=== PATIENT | male | born 1935 | race Caucasian/White ===

== ENCOUNTER 2017-12-01 11:06 | Emergency (ER) | payer MEDICARE, BC, SELFPAY ==
[2017-12-01 11:06] VITALS: BP 160/70; PULSE 74; RESP 14; TEMP 36.7; O2SAT 94; BMI 24.7
--- NOTE | 2017-12-01 11:32 | DI.CT.S_ITS ---
PROCEDURE: CT HEAD/BRAIN WO CON INDICATIONS: headache, recent bleed at [facility] on TECHNIQUE: Noncontrast 4.5 mm thick angled axial sections acquired from the foramen magnum to the vertex, with coronal and sagittal reformats. For radiation dose reduction, the following was used: automated exposure control, adjustment of mA and/or kV according to patient size. COMPARISON: None. FINDINGS: Image quality: Excellent. CSF spaces: Basal cisterns are patent. No extra-axial fluid collections. The ventricles are symmetric in size and shape. Brain: There is an oval hypodensity involving anteromedial aspect of left temporal lobe in the region of left hippocampus and measures 2 x 0.9 x 1.7 cm in size. Mild surrounding vasogenic edema is seen. Findings consistent with an acute to subacute hematoma in this area. No other area of intracranial hemorrhage. No evidence of intracranial mass. There is cerebral volume loss for age, with resultant ventricular and sulcal prominence. There are periventricular and deep white matter chronic small vessel ischemic changes. There is intracranial internal carotid artery atherosclerosis. Skull and face: Calvarium and visualized facial bones appear intact, without suspicious lesions. Sinuses: Visualized sinuses and mastoids are clear. IMPRESSION: 1. Acute to subacute appearing hematoma involving the left hippocampal region with mild surrounding vasogenic edema. No midline shift. No other area of intracranial bleed. 2. Age-appropriate atrophy and [id number]-[id number] periventricular white matter microangiopathic changes. Dictated by: Jabier Mena M.D. on 12/01/2017 at 11:57 Approved by: Jabier Mena M.D. on 12/01/2017 at 12:03
--- NOTE | 2017-12-01 11:34 | ED.NEUROSD ---
HPI - Neuro Symptoms/Deficit General Chief Complaint: Neuro Symptoms/Deficit Stated Complaint: NEUROLIGAL EVENT Time Seen by Provider: 12/01/17 11:25 Source: patient Mode of arrival: ambulatory Limitations: no limitations History of Present Illness HPI Narrative: Patient is an 82-year-old male who presents with headache. He has a history of multiple on ?micro bleeds? on and off the last 9 years. He was at [facility] last week for routine MRI of these bleeds. His they found that he did have an acute bleed he was placed in the hospital and discharged 2 days later. At that time he did not have severe headache. Yesterday he started having a worsening headache and today it is much worse. His states that he is slow but she does not notice any focal deficits patient does not complain of focal deficits. He now has no chest pain or heart palpitations. He was previously on aspirin and till at which point he was taken off when hemorrhagic stroke was found. He denies any new visual changes no facial drooping no weakness no numbness or tingling states that today he had increasing headache and was slower than normal to respond but is appropriate. Onset (ago): day(s) On Anticoagulants: No (ASA discontinued last week.) Related Data Home Medications Medication Instructions Recorded Confirmed atorvastatin 20 mg PO DAILY 12/01/17 12/01/17 fluticasone [Flovent HFA] 1 puff INHALATION DIRECTED 12/01/17 12/01/17 lisinopril 5 mg PO DAILY 12/01/17 12/01/17 topiramate 12.5 mg PO DAILY 12/01/17 12/01/17 Allergies Allergy/AdvReac Type Severity Reaction Status Date / Time No Known Drug Allergies Allergy Verified 12/01/17 11:23 Review of Systems Review of Systems All systems reviewed & are unremarkable except as noted in HPI and below Constitutional Denies chills, Denies fever(s), Reports headache(s), Denies lethargy and Denies weakness Eyes Denies change in vision, Denies eye discharge, Denies irritation and Denies loss of vision ENT Ears, Nose, Mouth, and Throat: Reports headache(s) Cardiovascular Denies chest pain, Denies irregular heart rhythm, Denies lightheadedness, Denies palpitations, Denies dyspnea, Denies dyspnea on exertion and Denies orthopnea Respiratory Denies cough, Denies dyspnea, Denies dyspnea on exertion and Denies wheezing Gastrointestinal Gastrointestinal: Denies abdominal pain, Denies change in bowel habits, Denies diarrhea, Denies nausea and Denies vomiting Musculoskeletal Denies back pain, Denies muscle weakness, Denies numbness and Denies tingling Integumentary/Breasts Denies pruritus, Denies erythema, Denies rash and Denies wounds Neurologic Reports as per HPI, Reports headache(s), Denies loss of vision, Denies numbness, Denies tingling and Denies weakness Endocrine Denies palpitations Allergic/Immunologic Denies wheezing FORMERLY [facility], [facility] Medical History Hemorrhagic stroke (Acute) Social History Smoking Status: Never smoker Exam Initial Vital Signs Initial Vital Signs: Vital Signs Temperature 98.0 F 12/01/17 11:06 Pulse Rate 74 12/01/17 11:06 Respiratory Rate 14 12/01/17 11:06 Blood Pressure 160/70 H 12/01/17 11:06 Pulse Oximetry 94 12/01/17 11:06 GENERAL: Alert cooperative elderly male in no acute distress HEENT: Head atraumatic,EOMI, pupils reactive, face symmetric CARDIOVASCULAR: Regular rate and rhythm without murmurs, rubs or gallops. RESPIRATORY: Breath sounds equal bilaterally, no wheezes rales or rhonchi. ABDOMEN: Soft, nontender. Normoactive bowel sounds all 4 quadrants. No guarding or rebound. : No CVA tenderness EXTREMITIES: Normal range of motion, no clubbing or edema. Neurovascularly intact NEUROLOGICAL: Alert and oriented x4.Normal gait and speech. Cranial nerves II through XII grossly intact. Good qymhsi-yt-fjoe, good mpoj-mf-skmp, strength equal bilaterally, no dysarthria or aphasia, sensation in tact to soft touch bilaterally, no visual changes, no facial droop SKIN: Warm, dry, no laceration, no petechiae, no rashes or lesions. Scores NIH Stroke Scale Level of Conciousness: Alert, keenly responsive Ask month/age: Answers both questions correctly. Open/close eyes, close hand: Performs both tasks correctly Best gaze horizontal: Normal Visual michel: No visual loss Facial palsy: Normal symetrical movement Left arm drift: No drift for full 10 sec Right arm drift: No drift for full 10 sec Left leg drift: No drift for full 10 sec Right leg drift: No drift for full 10 sec Limb ataxia: Absent Sensory on face/arms/legs: Normal, no sensory loss Best language: No aphasia, normal Dysarthria: Normal Extinction or inattention: No abnormality Total NIH Stroke scale score: 0 Course Orders Ordered: ED Orders 12/01/17 11:32 CT head/brain wo con Stat 12/01/17 11:45 Complete Blood Count AUTO DIFF Stat Comprehensive Metabolic Panel Stat Partial Thromboplastin Time Stat Prothrombin Time INR Stat Discontinued Medications Acetaminophen (Tylenol) 650 mg PO NOW ONE Stop: 12/01/17 13:03 Last Admin: 12/01/17 13:03 Dose: 650 mg Vital Signs - 8 hr 12/01/17 11:06 12/01/17 11:36 12/01/17 12:00 Temperature 98.0 F Pulse Rate 74 73 63 Respiratory Rate 14 14 14 Blood Pressure 160/70 H Blood Pressure [Right Arm] 116/70 131/70 Pulse Oximetry 94 94 12/01/17 12:35 12/01/17 13:00 Temperature Pulse Rate 70 61 Respiratory Rate 16 14 Blood Pressure Blood Pressure [Right Arm] 140/63 134/77 Pulse Oximetry 94 MDM - Neuro Symptoms/Deficit Medical Records Attestation: I reviewed the patient's medical records. Lab Data Attestation: I reviewed the patient's lab results. Result diagrams: 12/01/17 11:45 12/01/17 11:45 Lab Results 12/01/17 12/01/17 12/01/17 Range/Units 11:45 11:45 11:45 WBC 9.7 (4.5-11.0) X10^3/uL RBC 4.69 (4.5-5.9) X10^6/uL Hgb 15.1 (13.5-17.5) g/dL Hct 43.4 (41-53) % MCV 92.5 (80-100) fL MCH 32.1 (26-34) PG MCHC 34.7 (30-36) % RDW 13.9 (11.6-14.8) % Plt Count 195 (150-400) X10^3/uL Neut % (Auto) 82.7 H (50-75) % Lymph % (Auto) 10.4 L (25-40) % [place] % (Auto) 6.3 (3-14) % Eos % (Auto) 0.3 L (2-4) % Baso % (Auto) 0.3 (0-2) % Neut # (Auto) 8000 H (5166-3786) /uL PT 13.3 H (10.1-12.7) SECONDS INR 1.2 (0.9-1.3) APTT 30 (26.4-36.2) SECONDS Sodium 141 (137-145) mmol/L Potassium 3.9 (3.4-5.1) mmol/L Chloride 104 (98-107) mmol/L Carbon Dioxide 27 (22-32) mmol/L BUN 22 H (9-20) mg/dL Creatinine 1.40 H (0.66-1.25) mg/dL Estimated GFR 48.6 L (>60) mL/min BUN/Creatinine Ratio 15.7 (6-22) Glucose 131 H (80-110) mg/dL Calcium 9.0 (8.4-10.2) mg/dL Total Bilirubin 1.4 H (0.2-1.3) mg/dL AST 21 (17-59) IU/L ALT 21 (21-72) IU/L Alkaline Phosphatase 77 (38-126) U/L Total Protein 7.2 (6.3-8.2) g/dL Albumin 4.2 (3.5-5.0) g/dL Globulin 3.0 (1.7-4.1) g/dL Albumin/Globulin Ratio 1.4 (1.0-2.8) Imaging Data CT scan - head: Radiologist's impression: ADDENDUM This report includes an Addendum and supersedes previous reports for this exam. PROCEDURE: CT HEAD/BRAIN WO CON INDICATIONS: headache, recent bleed at [facility] on TECHNIQUE: Noncontrast 4.5 mm thick angled axial sections acquired from the foramen magnum to the vertex, with coronal and sagittal reformats. For radiation dose reduction, the following was used: automated exposure control, adjustment of mA and/or kV according to patient size. COMPARISON: None. FINDINGS: Image quality: Excellent. CSF spaces: Basal cisterns are patent. No extra-axial fluid collections. The ventricles are symmetric in size and shape. Brain: There is an oval hypodensity involving anteromedial aspect of left temporal lobe in the region of left hippocampus and measures 2 x 0.9 x 1.7 cm in size. Mild surrounding vasogenic edema is seen. Findings consistent with an acute to subacute hematoma in this area. No other area of intracranial hemorrhage. No evidence of intracranial mass. There is cerebral volume loss for age, with resultant ventricular and sulcal prominence. There are periventricular and deep white matter chronic small vessel ischemic changes. There is intracranial internal carotid artery atherosclerosis. Skull and face: Calvarium and visualized facial bones appear intact, without suspicious lesions. Sinuses: Visualized sinuses and mastoids are clear. IMPRESSION: 1. Acute to subacute appearing hematoma involving the left hippocampal region with mild surrounding vasogenic edema. No midline shift. No other area of intracranial bleed. 2. Age-appropriate atrophy and cfxf-tf-fvdvvzya periventricular white matter microangiopathic changes. Dictated by: Jabier Mena M.D. on 12/01/2017 at 11:57 Approved by: Jabier Mena M.D. on 12/01/2017 at 12:03 ADDENDUM: There is extension of above mentioned hematoma into temporal horn and occipital horn of left lateral ventricle. Minimal amount of blood is also seen in occipital horn of right lateral ventricle. Dictated by: Jabier Mena M.D. on 12/01/2017 at 12:34 Approved by: Jabier Mena M.D. on 12/01/2017 at 12:36 Addendum Dictated By: Jabier Mena MD Addendum Signed By: Addendum Cosigned By: DD/ /11/1237 TD/TT: 12/01/1710/11/1237 PROCEDURE: CT HEAD/BRAIN WO CON INDICATIONS: headache, recent bleed at [facility] on TECHNIQUE: Noncontrast 4.5 mm thick angled axial sections acquired from the foramen magnum to the vertex, with coronal and sagittal reformats. For radiation dose reduction, the following was used: automated exposure control, adjustment of mA and/or kV according to patient size. COMPARISON: None. FINDINGS: Image quality: Excellent. CSF spaces: Basal cisterns are patent. No extra-axial fluid collections. The ventricles are symmetric in size and shape. Brain: There is an oval hypodensity involving anteromedial aspect of left temporal lobe in the region of left hippocampus and measures 2 x 0.9 x 1.7 cm in size. Mild surrounding vasogenic edema is seen. Findings consistent with an acute to subacute hematoma in this area. No other area of intracranial hemorrhage. No evidence of intracranial mass. There is cerebral volume loss for age, with resultant ventricular and sulcal prominence. There are periventricular and deep white matter chronic small vessel ischemic changes. There is intracranial internal carotid artery atherosclerosis. Skull and face: Calvarium and visualized facial bones appear intact, without suspicious lesions. Sinuses: Visualized sinuses and mastoids are clear. IMPRESSION: 1. Acute to subacute appearing hematoma involving the left hippocampal region with mild surrounding vasogenic edema. No midline shift. No other area of intracranial bleed. 2. Age-appropriate atrophy and [id number] periventricular white matter microangiopathic changes. Dictated by: Jabier Mena M.D. on 12/01/2017 at 11:57 ECG Data Attestation: I personally reviewed and interpreted this ECG as follows: Prior ECG tracings: not available for review Interpretation: Sinus rhythm rate 64 with PVCs no acute ischemic changes rate 60 for pure interval 190 QRS 90 QTC 426 MDM Narrative Medical decision making narrative: I spoke with , neurologist at [facility] was compared head CT today to previous head CTs. He actually says of bleeding has improved. Patient has no neurologic or focal deficits. They be followed up as an outpatient with pain medicine. Recommend any occasion about focal deficits and when to return to the ED I specifically educated and what focal deficits are and return to the ED immediately the closest ED if they should present. It is expected that he may have some headache and discomfort. Discharge Plan Departure Patient Disposition: Home Clinical Impression: Intracranial hemorrhage, Small bowel obstruction Discharge Date/Time: 12/01/17 13:33 Interventions: ED Discharge Assessment Last Done: 12/01/17 13:32 Instructions: Subarachnoid Hemorrhage Activity Restrictions/Additional Instructions: *You have been diagnosed with intracranial hemorrhage *What to do: You're bleeding in her brain is smaller than previously. Expect to have headaches off and on take Tylenol for them when you need to. *Continue to take medications as directed Tylenol 650 mg every 4-6 hours if needed for pain do not take ibuprofen, Advil, Aleve, naproxen, aspirin or other NSAIDs *Follow up with your primary care provider in 2-3 days, follow up with Neurology, call today to schedule an appointment *Return to [facility] if you should have facial drooping difficulty speaking, arm or leg weakness, difficulty walking, visual changes or any new, worsening or concerning symptoms Prescriptions: No Action atorvastatin 20 mg tablet 20 mg PO DAILY RF: 0 topiramate 25 mg tablet 12.5 mg PO DAILY RF: 0 fluticasone [Flovent HFA] 220 mcg/actuation HFA aerosol inhaler 1 puff Inhalation DIRECTED RF: 0 lisinopril 5 mg tablet 5 mg PO DAILY RF: 0 Referrals: [facility] [Outside]
--- NOTE | 2017-12-01 11:35 | PC.NURSE ---
Pt w/ new headache started yesterday along w/ difficulty finding words as well as being 'slow mentally' according to . Steady gait. Headache 09/02, posterior. Has h/o micro bleeds.
[2017-12-01 11:36] VITALS: BP 116/70; PULSE 73; RESP 14; O2SAT 94
--- NOTE | 2017-12-01 11:38 | ED_ITS ---
HPI - Neuro Symptoms/Deficit General Chief Complaint: Neuro Symptoms/Deficit Stated Complaint: NEUROLIGAL EVENT Time Seen by Provider: 12/01/17 11:25 Source: patient Mode of arrival: ambulatory Limitations: no limitations History of Present Illness HPI Narrative: Patient is an 82-year-old male who presents with headache. He has a history of multiple on ?micro bleeds? on and off the last 9 years. He was at [facility] last week for routine MRI of these bleeds. His they found that he did have an acute bleed he was placed in the hospital and discharged 2 days later. At that time he did not have severe headache. Yesterday he started having a worsening headache and today it is much worse. His states that he is slow but she does not notice any focal deficits patient does not complain of focal deficits. He now has no chest pain or heart palpitations. He was previously on aspirin and till at which point he was taken off when hemorrhagic stroke was found. He denies any new visual changes no facial drooping no weakness no numbness or tingling states that today he had increasing headache and was slower than normal to respond but is appropriate. Onset (ago): day(s) On Anticoagulants: No (ASA discontinued last week.) Related Data Home Medications Medication Instructions Recorded Confirmed atorvastatin 20 mg PO DAILY 12/01/17 12/01/17 fluticasone [Flovent HFA] 1 puff INHALATION DIRECTED 12/01/17 12/01/17 lisinopril 5 mg PO DAILY 12/01/17 12/01/17 topiramate 12.5 mg PO DAILY 12/01/17 12/01/17 Allergies Allergy/AdvReac Type Severity Reaction Status Date / Time No Known Drug Allergies Allergy Verified 12/01/17 11:23 Review of Systems Review of Systems All systems reviewed & are unremarkable except as noted in HPI and below Constitutional Denies chills, Denies fever(s), Reports headache(s), Denies lethargy and Denies weakness Eyes Denies change in vision, Denies eye discharge, Denies irritation and Denies loss of vision ENT Ears, Nose, Mouth, and Throat: Reports headache(s) Cardiovascular Denies chest pain, Denies irregular heart rhythm, Denies lightheadedness, Denies palpitations, Denies dyspnea, Denies dyspnea on exertion and Denies orthopnea Respiratory Denies cough, Denies dyspnea, Denies dyspnea on exertion and Denies wheezing Gastrointestinal Gastrointestinal: Denies abdominal pain, Denies change in bowel habits, Denies diarrhea, Denies nausea and Denies vomiting Musculoskeletal Denies back pain, Denies muscle weakness, Denies numbness and Denies tingling Integumentary/Breasts Denies pruritus, Denies erythema, Denies rash and Denies wounds Neurologic Reports as per HPI, Reports headache(s), Denies loss of vision, Denies numbness , Denies tingling and Denies weakness Endocrine Denies palpitations Allergic/Immunologic Denies wheezing [facility] Medical History Hemorrhagic stroke (Acute) Social History Smoking Status: Never smoker Exam Initial Vital Signs Initial Vital Signs: Vital Signs Temperature 98.0 F 12/01/17 11:06 Pulse Rate 74 12/01/17 11:06 Respiratory Rate 14 12/01/17 11:06 Blood Pressure 160/70 H 12/01/17 11:06 Pulse Oximetry 94 12/01/17 11:06 GENERAL: Alert cooperative elderly male in no acute distress HEENT: Head atraumatic,EOMI, pupils reactive, face symmetric CARDIOVASCULAR: Regular rate and rhythm without murmurs, rubs or gallops. RESPIRATORY: Breath sounds equal bilaterally, no wheezes rales or rhonchi. ABDOMEN: Soft, nontender. Normoactive bowel sounds all 4 quadrants. No guarding or rebound. : No CVA tenderness EXTREMITIES: Normal range of motion, no clubbing or edema. Neurovascularly intact NEUROLOGICAL: Alert and oriented x4.Normal gait and speech. Cranial nerves II through XII grossly intact. Good [id number], good vmyr-ej-tzlg, strength equal bilaterally, no dysarthria or aphasia, sensation in tact to soft touch bilaterally, no visual changes, no facial droop SKIN: Warm, dry, no laceration, no petechiae, no rashes or lesions. Scores NIH Stroke Scale Level of Conciousness: Alert, keenly responsive Ask month/age: Answers both questions correctly. Open/close eyes, close hand: Performs both tasks correctly Best gaze horizontal: Normal Visual michel: No visual loss Facial palsy: Normal symetrical movement Left arm drift: No drift for full 10 sec Right arm drift: No drift for full 10 sec Left leg drift: No drift for full 10 sec Right leg drift: No drift for full 10 sec Limb ataxia: Absent Sensory on face/arms/legs: Normal, no sensory loss Best language: No aphasia, normal Dysarthria: Normal Extinction or inattention: No abnormality Total NIH Stroke scale score: 0 Course Orders Ordered: ED Orders 12/01/17 11:32 CT head/brain wo con Stat 12/01/17 11:45 Complete Blood Count AUTO DIFF Stat Comprehensive Metabolic Panel Stat Partial Thromboplastin Time Stat Prothrombin Time INR Stat Discontinued Medications Acetaminophen (Tylenol) 650 mg PO NOW ONE Stop: 12/01/17 13:03 Last Admin: 12/01/17 13:03 Dose: 650 mg Vital Signs - 8 hr 12/01/17 11:06 12/01/17 11:36 12/01/17 12:00 Temperature 98.0 F Pulse Rate 74 73 63 Respiratory Rate 14 14 14 Blood Pressure 160/70 H Blood Pressure [Right Arm] 116/70 131/70 Pulse Oximetry 94 94 12/01/17 12:35 12/01/17 13:00 Temperature Pulse Rate 70 61 Respiratory Rate 16 14 Blood Pressure Blood Pressure [Right Arm] 140/63 134/77 Pulse Oximetry 94 MDM - Neuro Symptoms/Deficit Medical Records Attestation: I reviewed the patient's medical records. Lab Data Attestation: I reviewed the patient's lab results. Result diagrams: 12/01/17 11:45 12/01/17 11:45 Lab Results 12/01/17 12/01/17 12/01/17 Range/Units 11:45 11:45 11:45 WBC 9.7 (4.5-11.0) X10^3/uL RBC 4.69 (4.5-5.9) X10^6/uL Hgb 15.1 (13.5-17.5) g/dL Hct 43.4 (41-53) % MCV 92.5 (80-100) fL MCH 32.1 (26-34) PG MCHC 34.7 (30-36) % RDW 13.9 (11.6-14.8) % Plt Count 195 (150-400) X10^3/uL Neut % (Auto) 82.7 H (50-75) % Lymph % (Auto) 10.4 L (25-40) % [place] % (Auto) 6.3 (3-14) % Eos % (Auto) 0.3 L (2-4) % Baso % (Auto) 0.3 (0-2) % Neut # (Auto) 8000 H (7380-7573) /uL PT 13.3 H (10.1-12.7) SECONDS INR 1.2 (0.9-1.3) APTT 30 (26.4-36.2) SECONDS Sodium 141 (137-145) mmol/L Potassium 3.9 (3.4-5.1) mmol/L Chloride 104 (98-107) mmol/L Carbon Dioxide 27 (22-32) mmol/L BUN 22 H (9-20) mg/dL Creatinine 1.40 H (0.66-1.25) mg/dL Estimated GFR 48.6 L (>60) mL/min BUN/Creatinine Ratio 15.7 (6-22) Glucose 131 H (80-110) mg/dL Calcium 9.0 (8.4-10.2) mg/dL Total Bilirubin 1.4 H (0.2-1.3) mg/dL AST 21 (17-59) IU/L ALT 21 (21-72) IU/L Alkaline Phosphatase 77 (38-126) U/L Total Protein 7.2 (6.3-8.2) g/dL Albumin 4.2 (3.5-5.0) g/dL Globulin 3.0 (1.7-4.1) g/dL Albumin/Globulin Ratio 1.4 (1.0-2.8) Imaging Data CT scan - head: Radiologist's impression: ADDENDUM This report includes an Addendum and supersedes previous reports for this exam. PROCEDURE: CT HEAD/BRAIN WO CON INDICATIONS: headache, recent bleed at [facility] on TECHNIQUE: Noncontrast 4.5 mm thick angled axial sections acquired from the foramen magnum to the vertex, with coronal and sagittal reformats. For radiation dose reduction, the following was used: automated exposure control, adjustment of mA and/or kV according to patient size. COMPARISON: None. FINDINGS: Image quality: Excellent. CSF spaces: Basal cisterns are patent. No extra-axial fluid collections. The ventricles are symmetric in size and shape. Brain: There is an oval hypodensity involving anteromedial aspect of left temporal lobe in the region of left hippocampus and measures 2 x 0.9 x 1.7 cm in size. Mild surrounding vasogenic edema is seen. Findings consistent with an acute to subacute hematoma in this area. No other area of intracranial hemorrhage. No evidence of intracranial mass. There is cerebral volume loss for age, with resultant ventricular and sulcal prominence. There are periventricular and deep white matter chronic small vessel ischemic changes. There is intracranial internal carotid artery atherosclerosis. Skull and face: Calvarium and visualized facial bones appear intact, without suspicious lesions. Sinuses: Visualized sinuses and mastoids are clear. IMPRESSION: 1. Acute to subacute appearing hematoma involving the left hippocampal region with mild surrounding vasogenic edema. No midline shift. No other area of intracranial bleed. 2. Age-appropriate atrophy and ritk-pr-[id number] periventricular white matter microangiopathic changes. Dictated by: Jabier Mena M.D. on 12/01/2017 at 11:57 Approved by: Jabier Mena M.D. on 12/01/2017 at 12:03 ADDENDUM: There is extension of above mentioned hematoma into temporal horn and occipital horn of left lateral ventricle. Minimal amount of blood is also seen in occipital horn of right lateral ventricle. Dictated by: Jabier Mena M.D. on 12/01/2017 at 12:34 Approved by: Jabier Mena M.D. on 12/01/2017 at 12:36 Addendum Dictated By: Jabier Mena MD Addendum Signed By: Addendum Cosigned By: DD/ /11/1237 TD/TT: 12/01/1710/11/1237 PROCEDURE: CT HEAD/BRAIN WO CON INDICATIONS: headache, recent bleed at [place] on TECHNIQUE: Noncontrast 4.5 mm thick angled axial sections acquired from the foramen magnum to the vertex, with coronal and sagittal reformats. For radiation dose reduction, the following was used: automated exposure control, adjustment of mA and/or kV according to patient size. COMPARISON: None. FINDINGS: Image quality: Excellent. CSF spaces: Basal cisterns are patent. No extra-axial fluid collections. The ventricles are symmetric in size and shape. Brain: There is an oval hypodensity involving anteromedial aspect of left temporal lobe in the region of left hippocampus and measures 2 x 0.9 x 1.7 cm in size. Mild surrounding vasogenic edema is seen. Findings consistent with an acute to subacute hematoma in this area. No other area of intracranial hemorrhage. No evidence of intracranial mass. There is cerebral volume loss for age, with resultant ventricular and sulcal prominence. There are periventricular and deep white matter chronic small vessel ischemic changes. There is intracranial internal carotid artery atherosclerosis. Skull and face: Calvarium and visualized facial bones appear intact, without suspicious lesions. Sinuses: Visualized sinuses and mastoids are clear. IMPRESSION: 1. Acute to subacute appearing hematoma involving the left hippocampal region with mild surrounding vasogenic edema. No midline shift. No other area of intracranial bleed. 2. Age-appropriate atrophy and [id number] periventricular white matter microangiopathic changes. Dictated by: Jabier Mena M.D. on 12/01/2017 at 11:57 ECG Data Attestation: I personally reviewed and interpreted this ECG as follows: Prior ECG tracings: not available for review Interpretation: Sinus rhythm rate 64 with PVCs no acute ischemic changes rate 60 for pure interval 190 QRS 90 QTC 426 MDM Narrative Medical decision making narrative: I spoke with , neurologist at [facility] was compared head CT today to previous head CTs. He actually says of bleeding has improved. Patient has no neurologic or focal deficits. They be followed up as an outpatient with pain medicine. Recommend any occasion about focal deficits and when to return to the ED I specifically educated and what focal deficits are and return to the ED immediately the closest ED if they should present. It is expected that he may have some headache and discomfort. Discharge Plan Departure Patient Disposition: Home Clinical Impression: Intracranial hemorrhage, Small bowel obstruction Discharge Date/Time: 12/01/17 13:33 Interventions: ED Discharge Assessment Last Done: 12/01/17 13:32 Instructions: Subarachnoid Hemorrhage Activity Restrictions/Additional Instructions: *You have been diagnosed with intracranial hemorrhage *What to do: You're bleeding in her brain is smaller than previously. Expect to have headaches off and on take Tylenol for them when you need to. *Continue to take medications as directed Tylenol 650 mg every 4-6 hours if needed for pain do not take ibuprofen, Advil, Aleve, naproxen, aspirin or other NSAIDs *Follow up with your primary care provider in 2-3 days, follow up with Neurology , call today to schedule an appointment *Return to [facility] if you should have facial drooping difficulty speaking, arm or leg weakness, difficulty walking, visual changes or any new, worsening or concerning symptoms Prescriptions: No Action atorvastatin 20 mg tablet 20 mg PO DAILY RF: 0 topiramate 25 mg tablet 12.5 mg PO DAILY RF: 0 fluticasone [Flovent HFA] 220 mcg/actuation HFA aerosol inhaler 1 puff Inhalation DIRECTED RF: 0 lisinopril 5 mg tablet 5 mg PO DAILY RF: 0 Referrals: [facility] [Outside]
[2017-12-01 11:51] LABS: Add Manual Diff / Slide Review NO; Basophils Percent Auto 0.3 % (0-2); Eosinophils Percent Auto 0.3 % (2-4); Hematocrit 43.4 % (41-53); Hemoglobin 15.1 g/dL (13.5-17.5); Lymphocytes Percent Auto 10.4 % (25-40); Mean Corpuscular HGB Conc 34.7 % (30-36); Mean Corpuscular Hemoglobin 32.1 PG (26-34); Mean Corpuscular Volume 92.5 fL (80-100); Monocytes Percent Auto 6.3 % (3-14); Neutrophils Absolute Auto 8000 /uL (3000-5900); Neutrophils Percent Auto 82.7 % (50-75); Platelet Count 195 X10^3/uL (150-400); Red Blood Cell Count 4.69 X10^6/uL (4.5-5.9); Red Cell Distribution Width 13.9 % (11.6-14.8); White Blood Cell Count 9.7 X10^3/uL (4.5-11.0)
[2017-12-01 11:58] LABS: INR 1.2 (0.9-1.3); Prothrombin Time 13.3 SECONDS (10.1-12.7)
[2017-12-01 12:00] VITALS: BP 131/70; PULSE 63; RESP 14
[2017-12-01 12:00] LABS: PTT Partial Thromboplastin Tim 30 SECONDS (26.4-36.2)
[2017-12-01 12:02] LABS: Alanine Aminotransferase 21 IU/L (21-72); Albumin 4.2 g/dL (3.5-5.0); Albumin Globulin Ratio 1.4 (1.0-2.8); Alkaline Phosphatase 77 U/L (38-126); Aspartate Aminotransferase 21 IU/L (17-59); BUN Creatinine Ratio 15.7 (6-22); Bilirubin Total 1.4 mg/dL (0.2-1.3); Blood Urea Nitrogen 22 mg/dL (9-20); Carbon Dioxide 27 mmol/L (22-32); Chloride 104 mmol/L (98-107); Estimated Glomerular Filt Rate 48.6 mL/min (>60); Glucose 131 mg/dL (80-110); HEMOLYSIS 16 (0-50); Potassium 3.9 mmol/L (3.4-5.1); Sodium 141 mmol/L (137-145); Total Protein 7.2 g/dL (6.3-8.2)
[2017-12-01 12:35] VITALS: BP 140/63; PULSE 70; RESP 16
[2017-12-01 13:00] VITALS: BP 134/77; PULSE 61; RESP 14; O2SAT 94
[2017-12-01] MEDS: ACETAMINOPHEN 325 MG TABLET 650 MG PO (13:03)
--- NOTE | 2017-12-04 16:20 | PC.NURSE ---
follow up call, n/a
== END 2017-12-01 13:33 | disposition home or self-care (01) ==
PROVIDERS: Emergency Provider Emergency Medicine
DX: I62.9 Nontraumatic intracranial hemorrhage, unspecified (principal); K56.609 Unspecified intestinal obstruction, unspecified as to partial versus complete obstruction
CPT/HCPCS: 70450; 80053; 85025; 85610; 85730; 93005; 93041; 99283; 99285; 99291

== ENCOUNTER 2018-06-22 06:55 | Emergency (ER) | payer MEDICARE, BC, SELFPAY ==
[2018-06-22] VITALS (7 sets, daily range): BP systolic 140–177; BP diastolic 73–95; PULSE 54–89; RESP 14–19; TEMP 36.2; O2SAT 94–100
--- NOTE | 2018-06-22 | DI.RAD.S_ITS ---
PROCEDURE: XR CHEST 1V INDICATIONS: stroke TECHNIQUE: One view of the chest was acquired. COMPARISON: None FINDINGS: Surgical changes and devices: Remote valve replacement. Lungs and pleura: Lungs are clear. No pleural effusions or pneumothorax. Mediastinum: Mediastinal contours appear normal. Heart size is normal. Bones and chest wall: No suspicious bony lesions. Overlying soft tissues appear unremarkable. IMPRESSION: No evidence acute pulmonary process. Dictated by: Burke Logan M.D. on 06/22/2018 at 8:31 Approved by: Burke Logan M.D. on 06/22/2018 at 8:32
--- NOTE | 2018-06-22 07:06 | ED.NEUROSD ---
HPI - Neuro Symptoms/Deficit General Chief Complaint: Neuro Symptoms/Deficit Stated Complaint: Stroke Time Seen by Provider: 06/22/18 06:55 Source: family and EMS History of Present Illness HPI Narrative: Patient is an 82-year-old male found down by his . She was sleeping she heard a thud found him on the ground. He does have laceration on the right side of his head. Not on aspirin or any anticoagulation. He has had hemorrhagic strokes in the past. Seen previously at [facility] for hemorrhagic stroke and bowel obstruction. found him on the ground. He is agitated wanting the C-collar off. Unable to focus on anything else. states that he was having some vision problems the last couple of days. Timing confirmed by: spouse Related Data Home Medications Medication Instructions Recorded Confirmed atorvastatin 20 mg PO DAILY 12/01/17 12/01/17 fluticasone propionate [Flovent 1 puff INHALATION DIRECTED 12/01/17 12/01/17 HFA] lisinopril 5 mg PO DAILY 12/01/17 12/01/17 topiramate 12.5 mg PO DAILY 12/01/17 12/01/17 Allergies Allergy/AdvReac Type Severity Reaction Status Date / Time No Known Drug Allergies Allergy Verified 06/22/18 08:08 Review of Systems Review of Systems ROS Unobtainable: Unobtainable due to medical condition [facility] Medical History Bowel obstruction (Acute) Hyperlipidemia (Acute) Hypertension (Acute) Hemorrhagic stroke (Acute) Social History (Updated 06/22/18 @ 07:31 by Anastasia Bob DO) marital status: Smoking Status: Never smoker Social History marital status: Smoking Status: Never smoker Exam Initial Vital Signs Initial Vital Signs: Vital Signs Temperature 97.1 F L 06/22/18 07:03 Pulse Rate 55 L 06/22/18 07:03 Respiratory Rate 15 06/22/18 07:03 Blood Pressure 140/73 06/22/18 07:03 Pulse Oximetry 100 06/22/18 07:03 Gen.: Alert advocated male HEENT: Laceration right temporal 2 cm. Pupils equal round and reactive Neck: Collar placed Lungs: Clear bilaterally no respiratory distress Cardiac: Regular rate no murmur Abdomen: Soft nontender scar noted Extremities: Moving all extremities Neurologic: Alert not able to follow commands trying to get C-collar moving all extremities Procedures Laceration Repair Laceration 1: Site: scalp Side (If applicable): right Size (cm): 2 Description: linear Depth: simple, single layer Skin layer closed with: jorge luis Number of sutures: 2 Course Orders Ordered: ED Orders 06/22/18 07:04 EKG-12 Lead Stat 06/22/18 07:11 Basic Metabolic Panel Stat Complete Blood Count AUTO DIFF Stat Partial Thromboplastin Time Stat Prothrombin Time INR Stat Troponin I Stat Type and Screen Stat 06/22/18 07:35 CT cervical spine wo con Stat CT head/brain wo con Stat Discontinued Medications Sodium Chloride (Normal Saline 0.9%) 1,000 mls @ 125 mls/hr IV CONT BOGDAN Last Admin: 06/22/18 07:18 Dose: 125 mls/hr Morphine Sulfate (Morphine) 2 mg IV NOW ONE Stop: 06/22/18 08:05 Last Admin: 06/22/18 07:50 Dose: 2 mg Ondansetron HCl (Zofran) 4 mg IV NOW ONE Stop: 06/22/18 07:18 Last Admin: 06/22/18 07:18 Dose: 4 mg Vital Signs - 8 hr 06/22/18 07:03 06/22/18 07:16 06/22/18 07:20 Temperature 97.1 F L Pulse Rate 55 L 62 55 L Respiratory Rate 15 14 18 Blood Pressure 140/73 Blood Pressure [Right Arm] 177/81 H 152/95 H Pulse Oximetry 100 100 100 06/22/18 07:37 06/22/18 07:50 06/22/18 08:00 Temperature Pulse Rate 89 54 L 56 L Respiratory Rate 16 17 18 Blood Pressure Blood Pressure [Right Arm] 175/73 H 156/74 H 154/83 H Pulse Oximetry 100 94 97 06/22/18 08:12 Temperature Pulse Rate 56 L Respiratory Rate 19 Blood Pressure Blood Pressure [Right Arm] 149/79 H Pulse Oximetry 100 MDM - Neuro Symptoms/Deficit Lab Data Attestation: I reviewed the patient's lab results. Result diagrams: 06/22/18 07:11 06/22/18 07:11 Lab Results 06/22/18 06/22/18 06/22/18 Range/Units 07:11 07:11 07:11 WBC 7.5 (4.5-11.0) X10^3/uL RBC 3.99 L (4.5-5.9) X10^6/uL Hgb 12.5 L (13.5-17.5) g/dL Hct 37.2 L (41-53) % MCV 93.2 (80-100) fL MCH 31.4 (26-34) PG MCHC 33.7 (30-36) % RDW 13.4 (11.6-14.8) % Plt Count 220 (150-400) X10^3/uL Neut % (Auto) 68.4 (50-75) % Lymph % (Auto) 18.6 L (25-40) % [place] % (Auto) 9.9 (3-14) % Eos % (Auto) 2.2 (2-4) % Baso % (Auto) 0.9 (0-2) % Neut # (Auto) 5100 (3230-5160) /uL Lymph # (Auto) 1400 (1655-3544) /uL [place] # (Auto) 700 (0-900) /uL Eos # (Auto) 200 (0-450) /uL Baso # (Auto) 100 (0-100) /uL PT 12.0 (10.1-12.7) SECONDS INR 1.0 (0.9-1.3) APTT 26 L D (26.4-36.2) SECONDS Sodium 140 (137-145) mmol/L Potassium 4.7 (3.4-5.1) mmol/L Chloride 109 H (98-107) mmol/L Carbon Dioxide 22 (22-32) mmol/L BUN 31 H (9-20) mg/dL Creatinine 1.40 H (0.66-1.25) mg/dL Estimated GFR 48.6 L (>60) mL/min BUN/Creatinine Ratio 22.1 H (6-22) Glucose 115 H (80-110) mg/dL Calcium 8.6 (8.4-10.2) mg/dL Troponin I < 0.012 (0.01-0.034) ng/mL Blood Type Antibody Screen 06/22/18 Range/Units 07:11 WBC (4.5-11.0) X10^3/uL RBC (4.5-5.9) X10^6/uL Hgb (13.5-17.5) g/dL Hct (41-53) % MCV (80-100) fL MCH (26-34) PG MCHC (30-36) % RDW (11.6-14.8) % Plt Count (150-400) X10^3/uL Neut % (Auto) (50-75) % Lymph % (Auto) (25-40) % [place] % (Auto) (3-14) % Eos % (Auto) (2-4) % Baso % (Auto) (0-2) % Neut # (Auto) (5593-9467) /uL Lymph # (Auto) (8751-7545) /uL [place] # (Auto) (0-900) /uL Eos # (Auto) (0-450) /uL Baso # (Auto) (0-100) /uL PT (10.1-12.7) SECONDS INR (0.9-1.3) APTT (26.4-36.2) SECONDS Sodium (137-145) mmol/L Potassium (3.4-5.1) mmol/L Chloride (98-107) mmol/L Carbon Dioxide (22-32) mmol/L BUN (9-20) mg/dL Creatinine (0.66-1.25) mg/dL Estimated GFR (>60) mL/min BUN/Creatinine Ratio (6-22) Glucose (80-110) mg/dL Calcium (8.4-10.2) mg/dL Troponin I (0.01-0.034) ng/mL Blood Type A Positive Antibody Screen Negative Imaging Data CT scan - head: Radiologist's impression: Radia report: 1 moderate large acute hemorrhagic contusions of the bilateral temporal lobes. Small acute hemorrhagic contusion of the left frontal lobe. Small acute subdural hemorrhage adjacent to the left temporal and left frontal lobes. Small acute hemorrhage with the right lobe which may be parenchymal or subarachnoid. 2 acute nondisplaced right buddhist bone fracture. PROCEDURE: CT HEAD/BRAIN WO CON INDICATIONS: Fall with head lac and altered TECHNIQUE: Noncontrast 4.5 mm thick angled axial sections acquired from the foramen magnum to the vertex, with coronal and sagittal reformats. For radiation dose reduction, the following was used: automated exposure control, adjustment of mA and/or kV according to patient size. COMPARISON: [facility], CT, CT HEAD/BRAIN WO CON, 12/01/2017, 11:41. FINDINGS: Image quality: Excellent. CSF spaces: Basal cisterns are patent. No extra-axial fluid collections. The ventricles are symmetric in size and shape. Brain: Bilateral inferior frontal and bilateral temporal lobe parenchymal hematomas. Small parenchymal hematoma is noted in the right occipital lobe. Small left frontal-temporal subdural hematoma is noted. There is cerebral volume loss for age, with resultant ventricular and sulcal prominence. There are periventricular and deep white matter chronic small vessel ischemic changes. There is intracranial internal carotid artery atherosclerosis. Skull and face: There is a fracture of the squamous portion of the right temporal bone which extends inferiorly into the greater wing of the right sphenoid bone. Sinuses: Hemorrhage is noted in the right sphenoid sinus and the right maxillary sinus. and mastoids are clear. IMPRESSION: 1. Bilateral temporal lobe and frontal lobe parenchymal hemorrhagic contusions. Small right occipital parietal hemorrhagic contusion. 2. Small left frontal-temporal subdural hematoma. 3. Nondisplaced, nondepressed calvarial fracture involving the squamous portion of the left temporal bone and the greater wing of the right sphenoid bone. 4. Findings telephoned to Dr. Bob on 06/22/2018 at 0741 hours. 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 States that he would want intervention if it all available. Initially called [facility] since patient has been there in the past however thought he was too complicated and she go to [facility] Radiology called concern T1 compression fracture may be new. C-collar had already been removed after initial night read. Loving collar placed. Critical Care Time Critical Care Time: Yes Total Critical Care Time: 45 Attestation: The high probability of a clinically significant, sudden or life threatening deterioration of the neurovascular system(s) required my full and direct attention, intervention and personal management. The aggregate critical care time was [45] minutes. This time is in addition to time spent performing reported procedures but includes the following: [x] Data Review and interpretation [x] Patient assessment and monitoring of vital signs [x] Documentation [x] Medication orders and management Discharge Plan Departure Patient Disposition: [facility] Clinical Impression: Intracranial hemorrhage, Compression fracture of T1 vertebra Closed fracture of temporal bone Qualifiers: Encounter type: initial encounter Qualified Code(s): S02.19XA - Other fracture of base of skull, initial encounter for closed fracture Discharge Date/Time: 06/22/18 08:40 Interventions: ED Discharge Assessment Last Done: 06/22/18 08:40 Prescriptions: No Action atorvastatin 20 mg tablet 20 mg PO DAILY RF: 0 topiramate 25 mg tablet 12.5 mg PO DAILY RF: 0 fluticasone propionate [Flovent HFA] 220 mcg/actuation HFA aerosol inhaler 1 puff Inhalation DIRECTED RF: 0 lisinopril 5 mg tablet 5 mg PO DAILY RF: 0
[2018-06-22] MEDS: ONDANSETRON 4 MG/2 ML INJ IV (07:18)
[2018-06-22] MEDS: SODIUM CHLORIDE 0.9% 1,000 ML 125 ML IV (07:18)
--- NOTE | 2018-06-22 07:19 | PC.NURSE ---
HR dropped to 39 and pt became nauseated. Pt is agitated, wants c collar off. Reaching for collar, Let go please. I need this off of my neck. @ caregivers at bedside to protect spine and keep pt reclining. Dr Bob aware, 4mg zofran given IV for nausea.
--- NOTE | 2018-06-22 07:20 | PC.NURSE ---
patient combative, uncooperative, repeatedly asking get this thing off my neck. two staff members holding patients hands due to him trying to take off c collar. continually re oriented patient but patient is continually uncooperative. patient asked what his name was and he responded Emanuel. patient moving both arms to try and get c collar off and moving both legs to try and sit up. patient asked multiple questions with no answer. provider aware and no new orders at this time.
[2018-06-22 07:35] LABS: Add Manual Diff / Slide Review NO; Basophils Absolute Auto 100 /uL (0-100); Basophils Percent Auto 0.9 % (0-2); Eosinophils Absolute Auto 200 /uL (0-450); Eosinophils Percent Auto 2.2 % (2-4); Hematocrit 37.2 % (41-53); Hemoglobin 12.5 g/dL (13.5-17.5); Lymphocytes Absolute Auto 1400 /uL (1100-4500); Lymphocytes Percent Auto 18.6 % (25-40); Mean Corpuscular HGB Conc 33.7 % (30-36); Mean Corpuscular Hemoglobin 31.4 PG (26-34); Mean Corpuscular Volume 93.2 fL (80-100); Monocytes Absolute Auto 700 /uL (0-900); Monocytes Percent Auto 9.9 % (3-14); Neutrophils Absolute Auto 5100 /uL (1500-7000); Neutrophils Percent Auto 68.4 % (50-75); Platelet Count 220 X10^3/uL (150-400); Red Blood Cell Count 3.99 X10^6/uL (4.5-5.9); Red Cell Distribution Width 13.4 % (11.6-14.8); White Blood Cell Count 7.5 X10^3/uL (4.5-11.0)
--- NOTE | 2018-06-22 07:35 | DI.CT.S_ITS ---
PROCEDURE: CT HEAD/BRAIN WO CON INDICATIONS: Fall with head lac and altered TECHNIQUE: Noncontrast 4.5 mm thick angled axial sections acquired from the foramen magnum to the vertex, with coronal and sagittal reformats. For radiation dose reduction, the following was used: automated exposure control, adjustment of mA and/or kV according to patient size. COMPARISON: [facility], CT, CT HEAD/BRAIN WO CON, 12/01/2017, 11:41. FINDINGS: Image quality: Excellent. CSF spaces: Basal cisterns are patent. No extra-axial fluid collections. The ventricles are symmetric in size and shape. Brain: Bilateral inferior frontal and bilateral temporal lobe parenchymal hematomas. Small parenchymal hematoma is noted in the right occipital lobe. Small left frontal-temporal subdural hematoma is noted. There is cerebral volume loss for age, with resultant ventricular and sulcal prominence. There are periventricular and deep white matter chronic small vessel ischemic changes. There is intracranial internal carotid artery atherosclerosis. Skull and face: There is a fracture of the squamous portion of the right temporal bone which extends inferiorly into the greater wing of the right sphenoid bone. Sinuses: Hemorrhage is noted in the right sphenoid sinus and the right maxillary sinus. and mastoids are clear. IMPRESSION: 1. Bilateral temporal lobe and frontal lobe parenchymal hemorrhagic contusions. Small right occipital parietal hemorrhagic contusion. 2. Small left frontal-temporal subdural hematoma. 3. Nondisplaced, nondepressed calvarial fracture involving the squamous portion of the left temporal bone and the greater wing of the right sphenoid bone. 4. Findings telephoned to Dr. Bob on 06/22/2018 at 0741 hours. Dictated by: Anyi Sharma MD, PhD on 06/22/2018 at 7:38 Approved by: Anyi Sharma MD, PhD on 06/22/2018 at 7:48
--- NOTE | 2018-06-22 07:35 | DI.CT.S_ITS ---
PROCEDURE: CT CERVICAL SPINE WO CON INDICATIONS: Fall TECHNIQUE: Noncontrast 3 mm thick sections acquired from the skull base to the T4 level. Sagittal and coronal reformats were then constructed. For radiation dose reduction, the following was used: automated exposure control, adjustment of mA and/or kV according to patient size. COMPARISON: None. FINDINGS: Image quality: Excellent. Bones: Mild anterior wedging of the T1 vertebral body is noted compatible with compression fracture which results in approximately 15% loss of normal intervertebral body height. No kyphosis or retropulsed fragments associated with the T1 compression fracture. Visualized superior ribs are intact. Spine degenerative disc disease and facet arthropathy. Soft tissues: Prevertebral soft tissues are normal in thickness. No paravertebral hematomas. No apical pneumothoraces. IMPRESSION: 1. T1 compression fracture of indeterminate age. Acute fracture cannot be excluded. Recommend MRI of the cervical spine for further characterization when clinically feasible. 2. Findings and recommendations telephoned to on 06/22/18 at 0753 hours Dictated by: Anyi Sharma MD, PhD on 06/22/2018 at 7:48 Approved by: Anyi Sharma MD, PhD on 06/22/2018 at 7:57
[2018-06-22 07:36] LABS: PTT Partial Thromboplastin Tim 26 SECONDS (26.4-36.2)
[2018-06-22 07:37] LABS: BUN Creatinine Ratio 22.1 (6-22); Blood Urea Nitrogen 31 mg/dL (9-20); Calcium 8.6 mg/dL (8.4-10.2); Carbon Dioxide 22 mmol/L (22-32); Chloride 109 mmol/L (98-107); Estimated Glomerular Filt Rate 48.6 mL/min (>60); Glucose 115 mg/dL (80-110); HEMOLYSIS < 15 (0-50); Potassium 4.7 mmol/L (3.4-5.1); Sodium 140 mmol/L (137-145)
[2018-06-22 07:50] LABS: Troponin I < 0.012 ng/mL (0.01-0.034)
[2018-06-22] MEDS: MORPHINE 2 MG/ML INJ IV (07:50)
--- NOTE | 2018-06-22 11:00 | PC.NURSE ---
When I assumed care pt was combative, not responding to verbal cues, wanted the hard C collar removed from his neck. All he said was let go of my hands, take this off. After his neck was cleared from the CT scan and the hard collar was removed. Pt curled up on his side and at that time would not respond at all. I noticed a furrowed brow on him until he got 2mg morphine IV per dr. hernandez. Almost immediately pt became relaxed, furrowed brow disappeared and he let us put on a [place] collar with the new information that he has a T-1 compression fracture. His Bella was a great source of details of what happened to him. He was getting up to the bathroom and fell on a concrete floor hitting his head. She mentioned she got up when she heard the thud and there he was in a pool of blood. pt remained calm and sedate until [employer] arrived and they roused him. He then became pulling at his lines and collar. Gave report to Tima RN's. Transferred to [facility].
== END 2018-06-22 08:40 | disposition short-term general hospital (02) ==
PROVIDERS: Emergency Medicine; Emergency Provider Emergency Medicine
DX: I62.9 Nontraumatic intracranial hemorrhage, unspecified (principal); S02.19XA Other fracture of base of skull, initial encounter for closed fracture; S22.010A Wedge compression fracture of first thoracic vertebra, initial encounter for closed fracture; S01.01XA Laceration without foreign body of scalp, initial encounter; W19.XXXA Unspecified fall, initial encounter
CPT/HCPCS: 12011; 36415; 70450; 71045; 72125; 80048; 84484; 85025; 85610; 85730; 86850; 86900; 86901; 93005; 96361; 96374; 96375; 99284; 99291; 99292; J2270; J2405